=== PATIENT | female | born 1970 | race Caucasian/White ===

== ENCOUNTER 2017-10-17 14:58 | Inpatient (IN) ==
[2017-10-17] MEDS ORDERED: ASPIRIN 325 MG TABLET PO STA (15:28)
[2017-10-17] MEDS ORDERED: KETOROLAC 30 MG/1 ML VIAL IV STA (15:28)
[2017-10-17 16:02] LABS: Basophils % 0.5 % (0.0-0.8); Eosinophils % 0.5 % (0.00-10.9); Hematocrit 40.4 VOL% (35.7-47.0); Hemoglobin 13.7 GM/DL (12.0-16.0); Immature Granulocytes % 0.5 %; Immature Granulocytes Absolute 0.03 #; Lymphocytes # 1.8 10*3/uL (1.4-4.0); Lymphocytes % 26.4 % (21.3-54.2); Mean Corpuscular HGB Conc 33.9 GM/DL (32-36); Mean Corpuscular Hemoglobin 31 PG (27-34); Mean Corpuscular Volume 91.8 FL (87-102); Mean Platelet Volume 8.4 FL (9.6-12.0); Monocytes # 0.5 10*3/uL (0.11-0.8); Monocytes % 8.1 % (1.7-12.7); Neutrophils # 4.3 10*3/uL (1.4-7.4); Platelet Count 289 T/CUMM (130-400); Red Cell Distribution Width 11.9 % (9.3-17.3); White Blood Count 6.7 T/CUMM (4-12)
[2017-10-17 16:09] LABS: INR 0.9; PT Patient Result 9.8 SECS; Partial Thromboplastin Time 28.1 SECS (0-40)
[2017-10-17] MEDS ORDERED: ASPIRIN 325 MG TABLET ONE (16:11)
[2017-10-17] MEDS ORDERED: KETOROLAC 30 MG/1 ML VIAL ONE (16:11)
[2017-10-17 16:25] LABS: Albumin 4.4 G/DL (3.4-5.0); Bilirubin,Total 0.7 MG/DL (0.2-1.0); Calcium 9.2 MG/DL (8.5-10.1); Osmolality,Calculated 242.8 MOS/KG (273-304); Total Protein 7.6 G/DL (6.4-8.3)
[2017-10-17] MEDS ORDERED: METOPROLOL TARTRATE 5 MG/5 ML VIAL IV ONE (17:17)
[2017-10-17] MEDS ORDERED: METOPROLOL TARTRATE 5 MG/5 ML VIAL IV STA (17:19)
[2017-10-17] MEDS ORDERED: HYDROCORTISONE 100 MG VIAL IV STA (17:20)
[2017-10-17] MEDS ORDERED: HYDROCORTISONE 100 MG VIAL ONE (17:22)
[2017-10-17] MEDS ORDERED: NITROGLYCERIN SL 0.4 MG TABLET SL ONE (19:06)
[2017-10-17] MEDS ORDERED: LACTULOSE 20 GM/30 ML UDCUP PO PRN (19:40)
[2017-10-17] MEDS ORDERED: HYDROmorphone 2 MG/1 ML VIAL IV PRN (19:40)
[2017-10-17] MEDS ORDERED: ONDANSETRON 4 MG/2 ML VIAL IV PRN (19:40)
[2017-10-17] MEDS: ENOXAPARIN 40 MG/0.4 ML SYRINGE SUBCUT SCH (20:47)
[2017-10-17] MEDS: NITROGLYCERIN 2% OINT 1 INCH/GM PACK TOP SCH (20:48)
[2017-10-17] MEDS: ALPRAZolam 0.5 MG TABLET PO PRN (20:48)
[2017-10-17] MEDS: DOCUSATE SODIUM 100 MG CAPSULE PO SCH (20:48)
[2017-10-17] MEDS ORDERED: METOPROLOL TARTRATE 25 MG TABLET PO SCH (21:00)
[2017-10-17] MEDS ORDERED: cloNIDine 0.1 MG TABLET PO ONE (22:30)
[2017-10-17] MEDS: SODIUM CHLORIDE 0.9% 1,000 ML IV SCH (22:40)
[2017-10-17] MEDS: ACETAMINOPHEN 325 MG TABLET PO PRN (22:45)
[2017-10-18 03:30] LABS: Basophils % 0.6 % (0.0-0.8); Eosinophils # 0.1 10*3/uL (0.0-0.87); Eosinophils % 1.3 % (0.00-10.9); Hematocrit 32.2 VOL% (35.7-47.0); Immature Granulocytes % 0.7 %; Immature Granulocytes Absolute 0.04 #; Mean Corpuscular HGB Conc 34.2 GM/DL (32-36); Mean Corpuscular Hemoglobin 31 PG (27-34); Mean Corpuscular Volume 90.2 FL (87-102); Mean Platelet Volume 8.5 FL (9.6-12.0); Monocytes # 0.5 10*3/uL (0.11-0.8); Neutrophils # 2.7 10*3/uL (1.4-7.4); Neutrophils % 50.4 % (38.7-73.9); Platelet Count 236 T/CUMM (130-400); Red Blood Count 3.57 MC/CUMM (3.8-5.5); Red Cell Distribution Width 11.5 % (9.3-17.3); White Blood Count 5.4 T/CUMM (4-12)
[2017-10-18 04:00] LABS: Albumin 3.3 G/DL (3.4-5.0); Bilirubin,Total 1.4 MG/DL (0.2-1.0); Calcium 8.1 MG/DL (8.5-10.1); Osmolality,Calculated 245.6 MOS/KG (273-304); Potassium 3.6 MMOL/L (3.5-5.1); Risk Ratio 1.8; Total Protein 5.7 G/DL (6.4-8.3); VLDL CHOLESTEROL 22.6 MG/DL
[2017-10-18] MEDS ORDERED: MAGNESIUM SULF RIDER 4 GM in PREMIX 1 EACH IV PRN (04:33)
[2017-10-18] MEDS ORDERED: MAGNESIUM SULF RIDER 2 GM in PREMIX 1 EACH IV PRN (04:33)
[2017-10-18] MEDS: NITROGLYCERIN 2% OINT 1 INCH/GM PACK TOP SCH ×4 (04:35→17:38)
[2017-10-18] MEDS: POTASSIUM CHLORIDE 20 MEQ TABLET PO PRN ×2 (04:58→07:07)
[2017-10-18] MEDS: BUTALBITAL/ACETAMIN/CAFFEINE 50-325-40 MG TABLET PO PRN ×3 (08:00→20:56)
[2017-10-18] MEDS ORDERED: FLUoxetine 20 MG CAPSULE PO SCH (09:00)
[2017-10-18] MEDS ORDERED: Brexpiprazole [Rexulti] PO SCH (09:00)
[2017-10-18] MEDS: PANTOPRAZOLE 40 MG VIAL IV SCH (09:50)
[2017-10-18] MEDS: DOCUSATE SODIUM 100 MG CAPSULE PO SCH ×2 (09:50→20:56)
[2017-10-18] MEDS: NEBIVOLOL 10 MG TABLET PO SCH (09:50)
[2017-10-18] MEDS: ASPIRIN EC 81 MG TABLET PO SCH (09:50)
[2017-10-18] MEDS: amLODIPine 5 MG TABLET PO SCH (09:50)
[2017-10-18] MEDS: SODIUM CHLORIDE 0.9% 1,000 ML IV SCH (10:02)
[2017-10-18] MEDS: ALPRAZolam 0.5 MG TABLET PO PRN ×2 (15:08→20:56)
[2017-10-18 15:41] LABS: Apearance,Urine CLEAR (Clear); Bacteria,Urine Occasional /HPF (Few); Bilirubin,Urine Negative (Negative); Blood, Urine Negative (Negative); Glucose,Urine (UA) Negative (Negative); Ketones,Urine 20 mg/dL (Negative); Mucus,Urine Occasional /LPF (Occasional); Nitrite,Urine Negative (Negative); Protein,Urine Negative; RBC,Urine <1 /HPF (0-4); Squamous Epithelial Cell,Urine Occasional /HPF (0-10); Urine Color Straw (Yellow); Urine Specific Gravity 1.005 (1.001-1.035); Urine Urobilinogen < 2.0 EU/DL (0.2-1.0); WBC,Urine <1 /HPF (0-6)
[2017-10-18] MEDS: ENOXAPARIN 40 MG/0.4 ML SYRINGE SUBCUT SCH (20:55)
[2017-10-19] MEDS: BUTALBITAL/ACETAMIN/CAFFEINE 50-325-40 MG TABLET PO PRN (01:59)
[2017-10-19] MEDS: ALPRAZolam 0.5 MG TABLET PO PRN ×2 (01:59→07:42)
[2017-10-19] MEDS: SODIUM CHLORIDE 0.9% 1,000 ML IV SCH (02:03)
[2017-10-19 05:20] LABS: Calcium 8.3 MG/DL (8.5-10.1); Osmolality,Calculated 262.4 MOS/KG (273-304); Potassium 4.4 MMOL/L (3.5-5.1)
[2017-10-19] MEDS: NITROGLYCERIN 2% OINT 1 INCH/GM PACK TOP SCH (06:05)
[2017-10-19] MEDS: ACETAMINOPHEN 325 MG TABLET PO PRN (07:43)
[2017-10-19 08:13] VITALS: BP 137/96
[2017-10-19] MEDS: PANTOPRAZOLE 40 MG VIAL IV SCH (08:22)
[2017-10-19] MEDS: ASPIRIN EC 81 MG TABLET PO SCH (08:24)
[2017-10-19] MEDS: NEBIVOLOL 10 MG TABLET PO SCH (08:24)
[2017-10-19] MEDS: amLODIPine 5 MG TABLET PO SCH (08:24)
[2017-10-19] MEDS: DOCUSATE SODIUM 100 MG CAPSULE PO SCH (08:24)
== END 2017-10-19 09:56 | disposition home or self-care (01) | DRG 641 ==
LOC: N.ED 14:58 → N.EDINP 17:24 → N.TELES 18:59
PROVIDERS: ADMIT Family Medicine; ATTEND Family Medicine

== ENCOUNTER 2018-01-07 15:15 | Observation (INO) ==
[2018-01-07] MEDS ORDERED: ONDANSETRON 4 MG/2 ML VIAL IV PRN (15:18)
[2018-01-07] MEDS ORDERED: ACETAMINOPHEN 325 MG TABLET PO PRN (15:18)
[2018-01-07] MEDS ORDERED: SODIUM CHLORIDE 0.9% 1,000 ML IV SCH (15:30)
[2018-01-07] MEDS ORDERED: ENOXAPARIN 30 MG/0.3 ML SYRINGE SUBCUT SCH (15:30)
[2018-01-07] MEDS: SODIUM CHLOR 0.9% KCL 20 MEQ 20 MEQ/1,000 ML BAG IV SCH (16:36)
[2018-01-07 18:04] LABS: Thyroid Stimulating Hormone 0.601 uIU/ml (0.358-3.74)
[2018-01-07 19:58] LABS: Barbiturates Screen,Urine Negative (Negative); Benzodiazepines Screen,Urine Negative (Negative); Cannabinoid Screen,Urine Negative (Negative); Opiate Screen,Urine Negative (Negative); Phencyclidine Screen,Urine Negative (Negative)
[2018-01-07 19:59] LABS: Creatinine,Urine Random < 13 MG/DL; Potassium,Urine Random 6 MMOL/L
[2018-01-07] MEDS ORDERED: DOCUSATE SODIUM 100 MG CAPSULE PO SCH (21:00)
[2018-01-07] MEDS ORDERED: POTASSIUM CHLORIDE 20 MEQ TABLET PO SCH (21:00)
[2018-01-08] MEDS ORDERED: ZALEPLON 5 MG CAPSULE PO PRN (00:47)
[2018-01-08] MEDS: SODIUM CHLOR 0.9% KCL 20 MEQ 20 MEQ/1,000 ML BAG IV SCH (00:57)
[2018-01-08 06:00] LABS: Basophils % 0.6 % (0.0-0.8); Eosinophils # 0.1 10*3/uL (0.0-0.87); Hematocrit 33.2 VOL% (35.7-47.0); Hemoglobin 11.8 GM/DL (12.0-16.0); Immature Granulocytes % 0.3 %; Immature Granulocytes Absolute 0.01 #; Lymphocytes # 1.3 10*3/uL (1.4-4.0); Mean Corpuscular HGB Conc 35.5 GM/DL (32-36); Mean Corpuscular Hemoglobin 31 PG (27-34); Mean Corpuscular Volume 85.8 FL (87-102); Mean Platelet Volume 8.7 FL (9.6-12.0); Monocytes # 0.5 10*3/uL (0.11-0.8); Monocytes % 14.6 % (1.7-12.7); Neutrophils # 1.5 10*3/uL (1.4-7.4); Neutrophils % 44.5 % (38.7-73.9); Platelet Count 234 T/CUMM (130-400); Red Blood Count 3.87 MC/CUMM (3.8-5.5); White Blood Count 3.4 T/CUMM (4-12)
[2018-01-08 06:33] LABS: Calcium 8.5 MG/DL (8.5-10.1); Osmolality,Calculated 267.1 MOS/KG (273-304); Potassium 3.7 MMOL/L (3.5-5.1)
[2018-01-08] MEDS ORDERED: PANTOPRAZOLE 40 MG TABLET PO SCH (09:00)
[2018-01-08 11:06] VITALS: BP 123/76
== END 2018-01-08 10:00 | disposition home or self-care (01) ==
LOC: N.5E
PROVIDERS: ADMIT Family Medicine; ATTEND Family Medicine

== ENCOUNTER 2019-07-09 09:51 | Observation (INO) ==
[2019-07-09] MEDS ORDERED: TISSUE ADHESIVE 1 EACH APPLICATOR TOP ONE (10:12)
[2019-07-09] MEDS ORDERED: SODIUM CHLORIDE 0.9% 500 ML IV STA (10:15)
[2019-07-09] MEDS ORDERED: DIPH/TET/ACEL PERT BOOSTER VACCINE 0.5 ML VIAL IM ONE (10:15)
[2019-07-09] MEDS ORDERED: VANCOMYCIN INJ 1,000 MG in SODIUM CHLORIDE 0.9% 250 ML IV STA (10:41)
[2019-07-09 10:46] LABS: Basophils % 0.4 % (0.0-0.8); Eosinophils % 0.1 % (0.00-10.9); Hematocrit 34.6 VOL% (35.7-47.0); Hemoglobin 11.6 GM/DL (12.0-16.0); Immature Granulocytes % 0.3 %; Immature Granulocytes Absolute 0.02 #; Lymphocytes # 1.1 10*3/uL (1.4-4.0); Lymphocytes % 14.6 % (21.3-54.2); Mean Corpuscular HGB Conc 33.5 GM/DL (32-36); Mean Corpuscular Volume 86.1 FL (87-102); Mean Platelet Volume 8.8 FL (9.6-12.0); Monocytes % 7.6 % (1.7-12.7); Platelet Count 236 T/CUMM (130-400); Red Blood Count 4.02 MC/CUMM (3.8-5.5); Red Cell Distribution Width 13.2 % (9.3-17.3); White Blood Count 7.2 T/CUMM (4-12)
[2019-07-09 10:59] LABS: Apearance,Urine CLEAR (Clear); Blood, Urine Negative (Negative); Glucose,Urine (UA) Negative (Negative); Hyaline Casts,Urine 8 /LPF (0-3); Ketones,Urine 5 mg/dL (Negative); Mucus,Urine Occasional /LPF (Occasional); Nitrite,Urine Negative (Negative); Protein,Urine Negative; RBC,Urine 1 /HPF (0-4); Squamous Epithelial Cell,Urine Occasional /HPF (0-10); Urine Color Yellow (Yellow); Urine Specific Gravity 1.023 (1.001-1.035); Urine Urobilinogen < 2.0 EU/DL (0.2-1.0); WBC,Urine <1 /HPF (0-6)
[2019-07-09 11:00] LABS: Bilirubin,Urine Moderate mg/dL (Negative)
[2019-07-09 11:15] LABS: Barbiturates Screen,Urine Negative (Negative); Benzodiazepines Screen,Urine Negative (Negative); Cannabinoid Screen,Urine Negative (Negative); Opiate Screen,Urine Positive (Negative)
[2019-07-09 11:37] LABS: Alanine Aminotransferase 21 U/L (13-56); Albumin 3.1 G/DL (3.4-5.0); Alkaline Phosphatase 83 U/L (45-117); Aspartate Amino Transferase 16 U/L (0-37); Bilirubin,Total < 0.39 MG/DL (0.2-1.0); Blood Urea Nitrogen 12 MG/DL (7-18); Calcium 7.4 MG/DL (8.5-10.1); Estimated Glom Filtration Rate 78 ML/MIN; Glucose 97 MG/DL (74-106); Osmolality,Calculated 265.4 MOS/KG (273-304); Troponin I < 0.015 NG/ML (0.00-0.045)
[2019-07-09] MEDS ORDERED: VANCOMYCIN INJ 1,000 MG in SODIUM CHLORIDE 0.9% 250 ML IV SCH ×2 (14:46→22:00)
[2019-07-09] MEDS ORDERED: ONDANSETRON 4 MG/2 ML VIAL IV PRN (14:46)
[2019-07-09] MEDS: SODIUM CHLORIDE 0.9% 1,000 ML IV SCH (16:00)
[2019-07-09] MEDS: ACETAMINOPHEN 325 MG TABLET PO PRN ×2 (16:00→22:32)
[2019-07-09] MEDS ORDERED: cloNIDine 0.1 MG TABLET PO PRN (17:30)
[2019-07-09 17:38] LABS: Troponin I < 0.015 NG/ML (0.00-0.045)
[2019-07-09] MEDS ORDERED: DOCUSATE SODIUM 100 MG CAPSULE PO SCH (21:00)
[2019-07-10 06:23] LABS: Basophils % 0.8 % (0.0-0.8); Eosinophils # 0.1 10*3/uL (0.0-0.87); Hemoglobin 11.7 GM/DL (12.0-16.0); Immature Granulocytes % 0.3 %; Immature Granulocytes Absolute 0.01 #; Lymphocytes # 1.2 10*3/uL (1.4-4.0); Mean Corpuscular HGB Conc 33.4 GM/DL (32-36); Mean Corpuscular Volume 85.6 FL (87-102); Mean Platelet Volume 8.9 FL (9.6-12.0); Monocytes % 9.3 % (1.7-12.7); Neutrophils % 57.6 % (38.7-73.9); Platelet Count 218 T/CUMM (130-400); Red Blood Count 4.09 MC/CUMM (3.8-5.5); Red Cell Distribution Width 13.4 % (9.3-17.3)
[2019-07-10 06:42] LABS: Albumin 3.2 G/DL (3.4-5.0); Bilirubin,Total 0.6 MG/DL (0.2-1.0); Calcium 8.1 MG/DL (8.5-10.1); Osmolality,Calculated 269.8 MOS/KG (273-304); Total Protein 6.2 G/DL (6.4-8.3)
[2019-07-10] MEDS: SODIUM CHLORIDE 0.9% 1,000 ML IV SCH (06:54)
[2019-07-10 08:37] VITALS: BP 158/107
[2019-07-10] MEDS ORDERED: METHYLTEST PO SCH (09:00)
[2019-07-10] MEDS ORDERED: ESTROGENS PO SCH (09:00)
[2019-07-10] MEDS ORDERED: MUPIROCIN 2% OINT 22 GM TUBE TOP SCH (09:00)
[2019-07-10] MEDS ORDERED: NEBIVOLOL 10 MG TABLET PO SCH (09:00)
[2019-07-10] MEDS ORDERED: PANTOPRAZOLE 40 MG TABLET PO SCH (09:00)
[2019-07-10] MEDS ORDERED: buPROPion XL 150 MG TABLET PO SCH (09:00)
[2019-07-17 08:11] LABS: Phencyclidine Interpretation Negative.; Phencyclidine-by GC/MS Negative ng/mL (Cutoff: 10)
== END 2019-07-10 09:38 | disposition left against medical advice (07) ==
LOC: EDBD → EDUNIT# → N.ED 09:51 → N.EDINP 09:51 → N.2W 13:14
PROVIDERS: ADMIT Family Medicine; ATTEND Family Medicine